=== PATIENT | female | born 2005 | race African-American/Black ===

== ENCOUNTER 2023-11-07 14:07 | Emergency (ER) | payer SELFPAY ==
[~2023-11-07] VITALS: Ht 160 cm; Wt 50.8 kg
[2023-11-07] MEDS: IBUPROFEN 400 MG TAB PO ONE (15:01)
[2023-11-07] MEDS: ACETAMINOPHEN 325 MG TAB PO ONE (16:38)
[2023-11-07] MEDS: SODIUM CHLORIDE 0.9% 1000ML 1,000 ML IV ONE ×2 (18:03)
[2023-11-07 19:33] VITALS: PULSE 96; RESP 16; TEMP 99; O2SAT 100
== END 2023-11-07 19:43 | disposition home or self-care (01) ==
LOC: ER 14:35
DX: R50.9 Fever, unspecified (principal); J02.8 Acute pharyngitis due to other specified organisms; R53.81 Other malaise
CPT/HCPCS: 83518; 87070; 99283; J7030

== ENCOUNTER 2023-11-07 23:01 | Emergency (ER) | payer SELFPAY ==
[~2023-11-07] VITALS: Ht 160 cm; Wt 50.8 kg
[2023-11-07 23:11] VITALS: PULSE 110; RESP 20; TEMP 98.5; O2SAT 99
[2023-11-07 23:58] LABS: INFLUENZAE A&B ANTIGEN (RAPID) NEGATIVE (NEGATIVE); RESPIRATORY SYNC. VIRUS NEGATIVE (NEGATIVE)
== END 2023-11-08 | disposition home or self-care (01) ==
LOC: ER 23:05
DX: R11.0 Nausea (principal); J02.8 Acute pharyngitis due to other specified organisms; Z11.52 Encounter for screening for COVID-19
CPT/HCPCS: 0223U; 36415; 87400; 87420; 99283